=== PATIENT | female | born 1980 | race African-American/Black ===

== ENCOUNTER 2017-01-17 22:54 | Emergency (ER) | payer BC ==
[~2017-01-17] VITALS: Ht 177.8 cm; Wt 149.7 kg
[~2017-01-17 22:54] MED LIST: AUGMENTIN 875-1 EACH PO; CARAFATE 11 GM/10 M1 PO; FLAGYL500 MG PO; FLONASE 0.05%50 MCG NASAL; IBUPROFEN 400400 M1; IRON PO; MAGNESIUM OXID400 MG PO; MECLIZINE 25 MG25 M1 PO; MONONESSA1 EACH PO; MULTIVITAMINS1 EAC7 PO; NORCO 5-325 TA1 EACH PO; PRENATAL; PRILOSEC 20 MG20 MG PO; TAXOL 30 M30 MG/5 M1; UNICOMPLEX M TA1 TA1; ZOFRAN ODT4 MG PO; ZYRTEC10 MG; [UNRECOGNIZED DRUG - OTHER]; [UNRECOGNIZED DRUG - OTHER]; [UNRECOGNIZED DRUG - OTHER]
[2017-01-18 00:59] VITALS: BP 107/54
== END 2017-01-18 01:00 | disposition home or self-care (01) ==
LOC: ER 22:54
DX: R20.9 Unspecified disturbances of skin sensation (principal); Z85.3 Personal history of malignant neoplasm of breast